=== PATIENT | female | born 1960 | race African-American/Black ===

== ENCOUNTER 2020-07-24 12:40 | Outpatient (CLI) | payer MEDICAID, OTHER | END 2020-07-24 12:41 | disposition home or self-care (01) | LOC: CSHMAMMO 12:40 | PROVIDERS: ATTEND Family Medicine | DX: Z12.31 Encounter for screening mammogram for malignant neoplasm of breast (principal) | CPT/HCPCS: 77067 ==

== ENCOUNTER 2021-10-06 14:46 | Outpatient (CLI) | payer OTHER | END 2021-10-06 14:47 | disposition home or self-care (01) | LOC: CSHMAMMO 14:46 | PROVIDERS: ATTEND Family Medicine | DX: Z12.31 Encounter for screening mammogram for malignant neoplasm of breast (principal) | CPT/HCPCS: 77067 ==

== ENCOUNTER 2023-06-24 14:07 | Outpatient (CLI) | payer OTHER | END 2023-06-24 14:08 | disposition home or self-care (01) | LOC: CSHMAMMO 14:07 | PROVIDERS: ATTEND Family Medicine Sports Medicine | DX: Z12.31 Encounter for screening mammogram for malignant neoplasm of breast (principal) | CPT/HCPCS: 77063; 77067 ==

== ENCOUNTER 2023-11-12 12:21 | Emergency (ER) | payer MEDICAID, OTHER ==
[2023-11-12] MEDS ORDERED: Ketorolac Tromethamine 30 MG (1 mL) VIAL ONE (12:49)
== END 2023-11-12 13:12 | disposition home or self-care (01) ==
LOC: CSHERS 12:21
DX: M16.12 Unilateral primary osteoarthritis, left hip (principal); I10 Essential (primary) hypertension
CPT/HCPCS: 96372; 99283; J1885